=== PATIENT | female | born 1945 | race Caucasian/White ===

== ENCOUNTER 2019-06-03 15:32 | Emergency (ER) | payer MEDICARE, OTHER ==
[~2019-06-03] VITALS: Ht 162.6 cm; Wt 71.8 kg
[2019-06-03] MEDS ORDERED: METO1TAB32 PO (15:43)
[2019-06-03] MEDS ORDERED: [UNRECOGNIZED DRUG - OTHER] PO (15:43)
[2019-06-03] MEDS ORDERED: RENOCAP PO (15:43)
[2019-06-03] MEDS ORDERED: ROCA0.25 PO (15:43)
[2019-06-03] MEDS ORDERED: CO Q10CA PO (15:43)
[2019-06-03] MEDS ORDERED: VANCOMYCIN HCL 1,000 MG, VIAL MATE ADAPTER 1 EACH in D5W 250 ML IV ONE (16:30)
[2019-06-03 17:47] LABS: BASO % 0.6 % (0.0-1.0); EOS # 0.1 10^3/uL (0.0-0.5); EOS % 1.7 % (0.0-3.0); HEMATOCRIT 33.4 % (36.0-47.0); HEMOGLOBIN 10.6 g/dl (12.0-15.5); LYMPH # 1.2 10^3/uL (1.5-5.0); LYMPH % 18.4 % (24.0-44.0); MEAN CORPUSCULAR HEMOGLOBIN 34.4 pg (27.0-33.0); MEAN CORPUSCULAR HGB CONC 31.7 g/dl (32.0-36.5); MEAN CORPUSCULAR VOLUME 108.4 fl (80.0-96.0); MONO # 0.4 10^3/uL (0.0-0.8); MONO % 6.4 % (0.0-5.0); NEUTROPHILS # 4.7 10^3/uL (1.5-8.5); NEUTROPHILS % 72.3 % (36.0-66.0); PLATELET COUNT, AUTOMATED 261 10^3/uL (150-450); RED BLOOD COUNT 3.08 10^6/uL (4.00-5.40); WHITE BLOOD COUNT 6.5 10^3/uL (4.0-10.0)
[2019-06-03 19:00] VITALS: BP 148/69
== END 2019-06-03 19:10 | disposition home or self-care (01) ==
LOC: M ED 15:32
DX: T85.691A Other mechanical complication of intraperitoneal dialysis catheter, initial encounter (principal); Y92.9 Unspecified place or not applicable; Y93.9 Activity, unspecified; E11.9 Type 2 diabetes mellitus without complications; N18.6 End stage renal disease; Z99.2 Dependence on renal dialysis; Z79.899 Other long term (current) drug therapy; Z88.2 Allergy status to sulfonamides
CPT/HCPCS: 36415; 80047; 85025; 87040; 96365; 99284; J3370